=== PATIENT | female | born 1990 | race Caucasian/White ===

== ENCOUNTER → 2017-05-02 07:54 | Outpatient (CLI) | payer MEDICAID, SELFPAY ==
[2017-05-02 09:42] LABS: Glucose 1 Hour 97 mg/dL
== END ==
PROVIDERS: PCP Obstetrics & Gynecology; Visit Provider Obstetrics & Gynecology
DX: Z34.90 Encounter for supervision of normal pregnancy, unspecified, unspecified trimester (principal)
CPT/HCPCS: 36415

== ENCOUNTER → 2017-05-25 10:05 | Outpatient (CLI) | payer MEDICAID, SELFPAY | PROVIDERS: PCP Obstetrics & Gynecology; Visit Provider Obstetrics & Gynecology | DX: Z34.90 Encounter for supervision of normal pregnancy, unspecified, unspecified trimester (principal) | CPT/HCPCS: 36415; J2790 ==

== ENCOUNTER 2017-05-26 08:12 | Outpatient (CLI) | payer MEDICAID, SELFPAY | END 2017-05-26 08:35 | disposition home or self-care (01) | LOC: LAB 08:13 | PROVIDERS: Visit Provider Obstetrics & Gynecology | DX: Z34.90 Encounter for supervision of normal pregnancy, unspecified, unspecified trimester (principal) | CPT/HCPCS: 96372; J2790 ==

== ENCOUNTER → 2017-06-29 15:19 | Outpatient (REF) | payer MEDICAID, SELFPAY | LOC: LAB 15:19 | PROVIDERS: Visit Provider Obstetrics & Gynecology | DX: Z34.90 Encounter for supervision of normal pregnancy, unspecified, unspecified trimester (principal) | CPT/HCPCS: 86403 ==

== ENCOUNTER → 2017-08-04 11:21 | Outpatient (CLI) | payer MEDICAID, SELFPAY ==
[2017-08-04 11:24] LABS: Microscopic, Urine URINE MICROSCOPIC (MICROSCOPIC)
[2017-08-04 11:45] LABS: Basophils % 0.2 % (0.1-2.0); Eosinophils # 0.1 K/mm3 (0.0-0.4); Eosinophils % 0.6 % (0.1-12.0); Hematocrit 34.7 % (37.0-47.0); Hemoglobin 11.5 g/dL (12.2-16.2); Lymphocytes # 1.6 K/mm3 (0.7-4.5); Lymphocytes % 19.5 K/mm3 (10-50); Mean Corpuscular HGB Conc 33.2 g/dL (31.8-35.4); Mean Corpuscular Hemoglobin 27.8 pg (27.0-31.2); Mean Corpuscular Volume 83.7 fl (81-99); Mean Platelet Volume 7.7 fl (7.4-10.4); Monocytes # 0.4 K/mm3 (0.1-1.0); Monocytes % 4.8 % (1.7-9.3); Neutrophils # 6.3 K/mm3 (1.8-7.8); Platelet Count 217 K/mm3 (142-424); Red Blood Count 4.15 M/mm3 (4.20-5.40); Red Cell Distribution Width 13.3 % (11.5-17.5); White Blood Count 8.4 K/mm3 (4.8-10.8)
[2017-08-04 11:54] LABS: Appearance,Urine CLEAR (Clear); Bilirubin,Urine Negative (Negative); Blood, Urine Negative (Negative); Color,Urine YELLOW (Yellow); Glucose,Urine (UA) Negative (Negative); Ketones,Urine Negative (Negative); Leukocyte Esterase,Urine Negative (Negative); Nitrate,Urine Negative (Negative); Protein,Urine Negative (Negative); Specific Gravity, Urine 1.015 (1.005-1.030); Urobilinogen,Urine 0.2 EU/dl (0.2)
[2017-08-04 12:12] LABS: Bacteria,Urine Trace /lpf; Squamous Epithelial Cell,Urine Occasional #/hpf (0-5)
[2017-08-04 13:27] LABS: Alanine Aminotransferase 22 U/L (12-78); Albumin Level 2.6 gm/dL (3.4-5.0); Albumin/Globulin Ratio 0.7 (1.1-1.8); Alkaline Phosphatase 203 U/L (46-116); Anion Gap 16.4 mEq/L (5-15); Aspartate Amino Transferase 23 U/L (15-37); Bilirubin,Total 0.2 mg/dL (0.2-1.0); Blood Urea Nitrogen 10 mg/dL (7-18); Calcium 8.8 mg/dL (8.5-10.1); Carbon Dioxide 21 mmol/L (21.0-32.0); Chloride 104 mmol/L (98-107); Creatinine,Serum 0.58 mg/dL (0.55-1.02); Estimated Glomerular Filt Rate 127 ml/min (>60); GFR (African American) 153 ML/MIN (>60); Globulin 3.5 gm/dl (1.3-3.2); Glucose 80 mg/dL (74-106); Potassium 4.4 mmoL/L (3.5-5.1); Sodium 137 mmol/L (136-145); Total Protein,Serum 6.1 gm/dL (6.4-8.2)
== END ==
PROVIDERS: Visit Provider Obstetrics & Gynecology
DX: Z01.812 Encounter for preprocedural laboratory examination (principal); P08.0 Exceptionally large newborn baby
CPT/HCPCS: 36415; 80053; 81001; 85025

== ENCOUNTER 2017-08-07 05:56 | Inpatient (IN) ==
[2017-08-07 06:32] LABS: Basophils % 0.1 % (0.1-2.0); Eosinophils # 0.1 K/mm3 (0.0-0.4); Eosinophils % 0.7 % (0.1-12.0); Hematocrit 33.2 % (37.0-47.0); Lymphocytes # 1.9 K/mm3 (0.7-4.5); Lymphocytes % 22.5 K/mm3 (10-50); Mean Corpuscular HGB Conc 33.1 g/dL (31.8-35.4); Mean Corpuscular Hemoglobin 27.3 pg (27.0-31.2); Mean Corpuscular Volume 82.6 fl (81-99); Mean Platelet Volume 8.5 fl (7.4-10.4); Monocytes # 0.5 K/mm3 (0.1-1.0); Monocytes % 5.8 % (1.7-9.3); Neutrophils # 5.8 K/mm3 (1.8-7.8); Neutrophils % 70.8 % (37.0-80.0); Platelet Count 192 K/mm3 (142-424); Red Blood Count 4.01 M/mm3 (4.20-5.40); Red Cell Distribution Width 13.3 % (11.5-17.5); White Blood Count 8.2 K/mm3 (4.8-10.8)
[2017-08-07 06:45] LABS: Albumin Level 2.5 gm/dL (3.4-5.0); Albumin/Globulin Ratio 0.7 (1.1-1.8); Anion Gap 12.8 mEq/L (5-15); Bilirubin,Total 0.2 mg/dL (0.2-1.0); Calcium 8.7 mg/dL (8.5-10.1); Globulin 3.7 gm/dl (1.3-3.2); Potassium 3.8 mmoL/L (3.5-5.1); Total Protein,Serum 6.2 gm/dL (6.4-8.2)
--- NOTE | 2017-08-07 07:27 | Progress Note ---
[facility] Anesthesia Checklist - Patient Identification Patient Identification: Arm Band, Verbal (Name & ) - Structural Data Admitted From: Home Consent for Planned Operative Procedure(s) Verified: Yes Verified Documents: Surgical Consent, History and Physical - NPO Status Verified Time NPO: 00:00 - Additional verifications Patient : Yes Anesthesia Reactions: No - Airway Assessment C-Spine Mobility Assessed: Yes TMJ Mobility Assessed: Yes Dentition: Good Dentition - Neurological Assessment Level of Consciousness: Awake Hx Seizures: No Numbness or tingling in extremities: No - Anesthesia Plan Anesthesia Risk discussed: Yes Anesthesia Plan: Verified ASA Class: II Anesthesia Type: Spinal [facility] Anesthesia HX I have reviewed the patient's past medical history: Yes Medical History: Reports:: Gastroesophageal Reflux Disease(GERD) Other Medical History: Reports: Other Other Surgeries: Yes: Other. No: (PRIMARY R/T PREVIOUS CPD) Amputation: No Fractures: Yes *Family Hx:: Cancer, Hypertension, Coronary Artery Disease
--- NOTE | 2017-08-07 08:28 | Operative Note ---
Date of procedure: 08/07/17 Pre-op Diagnosis:: 1. Term intrauterine . 2. Cephalopelvic disproportion. Post-op Diagnosis:: 1. Term intrauterine , delivered. 2. Cephalopelvic disproportion. 3. 9/9, 7 lb. 11 oz., 20.5 inch female infant, born at 0750. Procedure performed:: Primary low transverse cervical section. Surgeon:: Naman Sawant MD Turf Farm Worker(s):: Dr. Joanie Slater STOCK REPLENISHER:: Other (Jan Farmer CRNA) Anesthesia: spinal Estimated blood loss (mL): 400 Operative findings:: Term intrauterine Operative note:: After the patient was prepped and draped in usual fashion and spinal anesthesia was administered, a low Pfannenstiel incision was made across the midline, and the fat and fascia was in usual fashion, bleeders being clamped and coagulated along the way. The peritoneum was entered with Metzenbaum scissors, and extended above and below. The bladder peritoneum was sharply and bluntly dissected free, and the bladder was protected with a bladder blade. The uterus was entered in a low transverse fashion with a knife, and the incision was extended bluntly, bilaterally. The amniotic sac was ruptured for clear fluid. The baby was found to be in the direct occiput posterior position of the vertex and, with appropriate fundal pressure, the head was easily delivered. There was no meconium. The baby's nasal and oropharynx were bulb suctioned, and the baby cried spontaneously on the abdomen, as was delivered. The cord was clamped and cut, 3 vessels were noted to be within the cord, and cord blood was obtained. The cord pH was 7.34. The baby was handed into the arms of the attending dry room attendant, Dr. Hassan, who assigned Apgars of 9 at 1 minute and 9 at 5 minutes to this 7 lbs. 11 oz., 20.5 inch female infant, born at 0750. The baby was then taken to the nursery in excellent condition, along with the father , who has been present in the operating room. A ring forceps was used to assure adequate change to the cervix; this was then passed off the field, as a nonsterile instrument. The uterus was closed in 2 layers, the first a running locked suture of #1 Vicryl as an endometrial layer, followed by a running unlocked suture of #1 Vicryl as a myometrial layer, imbricating over the first. The bladder peritoneum was closed with running unlocked suture of 2-0 Vicryl. Blood and clots were then swept from the gutters, and the 2 inspected and found to be normal. The peritoneum was grasped with 3 Lydia clamps, and closed with a running semi-locked suture of 0 Vicryl. The muscle was approximated with a running unlocked suture of 0 Vicryl. The fascia was closed with a running locked suture of #1 Vicryl. The subcutaneous fat and Jesse's fascia were closed with a running unlocked suture of 2-0 Vicryl. The skin was closed with a subcuticular suture of 3-0 Vicryl, and appropriately dressed. The sponge needle counts correct. The estimated blood loss was 400 cc. The urine was clear in the Dacosta catheter. A pelvic examination at the close of the procedure expressed blood and clots from the involuting uterus, with IV Pitocin running. The patient tolerated the procedure well, and was taken to PACU in excellent condition. Her blood type is O Rh-, and she will be worked up for Rh immunoglobulin eligibility. Her rubella titer is immune. She plans to breast- feed. Condition: stable Disposition: PACU Specimens:: None Complications:: None
--- NOTE | 2017-08-07 08:34 | Progress Note ---
[facility] Anesthesia Record Part I Intake, IV Amount: 600 Estimated blood loss (mL): 1,000 Urine output (mL): 500 Blood Products used (#): none Blood Pressure: 115/63 SaO2: 98 Pulse Rate: 74 Respiratory Rate: 20 Temperature: 97.0 F Patient is:: Awake Stable to PACU at:: 08:30
--- NOTE | 2017-08-07 08:34 | Progress Note ---
[facility] Anesthesia Record Part II Discharge Time: 09:00 Destination: OB unit PACU nurse assessment reviewed?: Yes Patient Condition:: Good Anesthesia Complications:: None
--- NOTE | 2017-08-07 11:51 | Pharmacy Consult Notes ---
[facility] Pharmacy VTE Monitoring - Patient Demographics Admission date: 08/07/17 Report Date: 08/07/17 Time: 11:50 Allergies/Adverse Reactions: Patient Allergies No Known Allergies Allergy (Verified 08/04/17 10:34) Height: 1.63 m Weight: 87.22 kg - VTE Risk Labs: VTE Related Lab Results Hgb 11.0 g/dL (12.2-16.2) L 08/07/17 06:21 Hct 33.2 % (37.0-47.0) L 08/07/17 06:21 Plt Count 192 K/mm3 (142-424) 08/07/17 06:21 BUN 11 mg/dL (7-18) 08/07/17 06:21 Creatinine 0.63 mg/dL (0.55-1.02) 08/07/17 06:21 Estimated Creat Clear 188 mL/min (0-300) 08/07/17 06:21 Clinical Trial Participant: No - Prophylaxis VTE Prophylaxis Ordered?: Yes Types of VTE Prophylaxis: IPCS Knee High (post-op)
[2017-08-07 12:25] LABS: Bilirubin,Urine Negative (Negative); Blood, Urine Negative (Negative); Color,Urine YELLOW (Yellow); Glucose,Urine (UA) Negative (Negative); Ketones,Urine Negative (Negative); Leukocyte Esterase,Urine Negative (Negative); Microscopic, Urine URINE MICROSCOPIC (MICROSCOPIC); Protein,Urine Negative (Negative); Specific Gravity, Urine <= 1.005 (1.005-1.030); Urobilinogen,Urine 0.2 EU/dl (0.2)
[2017-08-07 12:41] LABS: Amphetamine/Metha Screen,Urine Negative ng/mL (<1000); Barbiturates Screen,Urine Negative ng/mL (<200); Benzodiazepines Screen,Urine Negative ng/mL (200); Cannabinoid Screen,Urine Negative ng/mL (<50); Cocaine Screen,Urine Negative ng/g (<300); Methadone Screen,Urine Negative ng/mL (<300); Opiate Screen,Urine Negative ng/mL (<300); Phencyclidine Screen,Urine Negative ng/mL (<25)
[2017-08-07 13:33] LABS: Appearance,Urine CLEAR (Clear); PH,Urine 6.5 (5.0-8.5)
[2017-08-07 13:41] LABS: Bacteria,Urine Trace /lpf; Squamous Epithelial Cell,Urine Occasional #/hpf (0-5); WBC,Urine Occasional #/hpf (0-3)
[2017-08-08 06:03] LABS: Hematocrit 26.6 % (37.0-47.0)
[2017-08-08 06:10] LABS: Hemoglobin 8.7 g/dL (12.2-16.2)
--- NOTE | 2017-08-08 06:33 | Progress Note ---
Internal Medicine - PN: Subj *Date: 08/08/17 *Time: 06:32 Interval history: This is /postop day #1. The patient is afebrile. Vital signs stable. Wound clean. Abdomen soft (somewhat distended). Lochia normal. Uterine fundus involuting well. Breast-feeding well. Impression: Stable. Exam Vital signs and Labs for Last 24 Hours: Temp Pulse Resp BP Pulse Ox 97.0 F L 89 17 123/91 97 08/07/17 09:21 08/07/17 09:21 08/07/17 09:21 08/07/17 09:21 08/07/17 09:21 Laboratory Results - last 24 hr 08/07/17 06:21: WBC 8.2, RBC 4.01 L, Hgb 11.0 L, Hct 33.2 L, MCV 82.6, MCH 27.3 , MCHC 33.1, RDW 13.3, Plt Count 192, MPV 8.5, Neut % (Auto) 70.8, Lymph % (Auto ) 22.5, Day % (Auto) 5.8, Eos % (Auto) 0.7, Baso % (Auto) 0.1, Neut # (Auto) 5.8, Lymph # (Auto) 1.9, Day # (Auto) 0.5, Eos # (Auto) 0.1, Baso # (Auto) 0.0 08/07/17 06:21: Sodium 136, Potassium 3.8, Chloride 105, Carbon Dioxide 22, Anion Gap 12.8, BUN 11, Creatinine 0.63, Estimated Creat Clear 188, Estimated GFR 115, Est GFR ( Amer) 139, Glucose 93, Calcium 8.7, Total Bilirubin 0.2, AST 18, ALT 22, Alkaline Phosphatase 200 H, Total Protein 6.2 L, Albumin 2.5 L, Globulin 3.7 H, Albumin/Globulin Ratio 0.7 L 08/07/17 06:21: Blood Type O Negative, Antibody Screen Positive 08/07/17 06:21: Antibody Identification Anti-D 08/07/17 07:40: Urine Color Yellow, Urine Appearance Clear, Urine pH 6.5, Ur Specific Arley <= 1.005, Urine Protein Negative, Urine Glucose (UA) Negative, Urine Ketones Negative, Urine Blood Negative, Urine Nitrate Negative, Urine Bilirubin Negative, Urine Urobilinogen 0.2, Ur Leukocyte Esterase Negative, Urine WBC Occasional, Ur Squamous Epith Cells Occasional, Urine Bacteria Trace 08/07/17 07:40: Urine Opiates Screen Negative, Ur Barbituates Screen Negative, Ur Phencyclidine Scrn Negative, Ur Amphetamines Screen Negative, U Methamphetamines Scrn Negative, U Benzodiazepines Scrn Negative, Urine Cocaine Screen Negative, U Marijuana (THC) Screen Negative 08/07/17 07:59: Cord ABG pH 7.34 L 08/08/17 05:40: Hgb 8.7 L D, Hct 26.6 L I & O for Last 24 hours: Intake & Output 08/05/17 08/06/17 08/07/17 08/08/17 11:59 11:59 11:59 11:59 Intake Total 600 / 600 Output Total 500 / 500 Balance 100 / 100 Weight 192 lb 4.6 oz
--- NOTE | 2017-08-09 09:50 | Progress Note ---
Internal Medicine - PN: Subj *Date: 08/09/17 *Time: 09:49 Interval history: This is /postop day #2. The patient is afebrile. Vital signs stable. Wound clean. Abdomen soft. She is somewhat bloated and is not had a bowel movement. Nursing well. Hemoglobin 8.7 g, but clinically stable. Improving. Exam Vital signs and Labs for Last 24 Hours: Temp Pulse Resp BP Pulse Ox 97.0 F L 89 18 123/91 97 08/07/17 09:21 08/07/17 09:21 08/08/17 08:17 08/07/17 09:21 08/07/17 09:21 I & O for Last 24 hours: Intake & Output 08/06/17 08/07/17 08/08/17 08/09/17 11:59 11:59 11:59 11:59 Intake Total 600 / 600 Output Total 500 / 500 Balance 100 / 100 Weight 192 lb 4.6 oz
[2017-08-10 04:24] VITALS: BP 131/61
--- NOTE | 2017-08-10 06:19 | Progress Note ---
Internal Medicine - PN: Subj *Date: 08/10/17 *Time: 06:18 Interval history: This is /postop day #3. The patient is afebrile. Vital signs stable. Wound clean. Abdomen soft. Lochia normal. Uterine fundus involuting well. She is eating and ambulating and has had a bowel movement. She will be discharged today. Exam Vital signs and Labs for Last 24 Hours: Temp Pulse Resp BP Pulse Ox 98.0 F 77 18 131/61 97 08/10/17 04:00 08/10/17 04:00 08/10/17 04:00 08/10/17 04:00 08/07/17 09:21 I & O for Last 24 hours: Intake & Output 08/07/17 08/08/17 08/09/17 08/10/17 11:59 11:59 11:59 11:59 Intake Total 600 / 600 Output Total 500 / 500 Balance 100 / 100 Weight 192 lb 4.6 oz
--- NOTE | 2017-08-10 06:23 | Discharge Summary ---
General - General Admission date:: 08/07/17 Discharge date: 08/10/17 Hospital Course Hospital Course: This 26-year-old 2, now para 2, Ab0 white female was admitted at 39 weeks of gestation for a primary section because of a history of an almost 10 pound baby delivered vaginally at the end of her previous , which resulted in the baby sustaining a fractured clavicle. This baby was also thought to be large and the decision was made to deliver abdominally. On the date of admission, the patient was taken to the operating room, where she underwent a primary low transverse cervical section without complications. The baby was an 9/9, 7 lbs. 11 oz., 20.5 inch female infant, born at 0750 on 08/07/17. The baby is breast-feeding, and is done well. Post and postoperatively, the patient is done well. She is eating and ambulating, and has had a bowel movement. Her wound is clean. Her abdomen is soft. Her lochia is normal. Her uterine fundus has involuted well. She is discharged home on the third /postoperative day on Percocet 5 /325 cyst #20), 1 p.o. every 6 hours as needed pain; on vitamins once a day; and on iron twice a day (hemoglobin 8.7 g, but clinically stable). Patient is not a smoker. Her blood type is O Rh+, and she has received RhoGam. Her rubella titer is immune. She is given appropriate instructions as to diet , exercise, and wound care, and she is to return the office in 2 weeks for follow-up. Objective Vital signs: Temp Pulse Resp BP Pulse Ox 98.0 F 77 18 131/61 97 08/10/17 04:00 08/10/17 04:00 08/10/17 04:00 08/10/17 04:00 08/07/17 09:21 Discharge Plan - Patient Discharge Instructions - Follow up Plan Home Medications: Home Medications Medication Instructions Recorded Confirmed Type ferrous sulfate 325 mg (65 mg 325 mg PO DAILY tab 03/28/17 08/07/17 History iron) tablet,delayed release 1 tab PO DAILY 03/28/17 08/07/17 History vitamin,calcium,sfaaxidd-phxg-edsts acid tablet Prescriptions/Medication Reconciliation: No Action vitamin,calcium,rikimasd-cusx-ebjtf acid tablet 1 tab PO DAILY ferrous sulfate 325 mg (65 mg iron) tablet,delayed release 325 mg PO DAILY tab
== END 2017-08-10 12:25 | disposition home or self-care (01) ==
LOC: OB 05:56
PROVIDERS: ADMIT Obstetrics & Gynecology; ATTEND Obstetrics & Gynecology

== ENCOUNTER 2024-02-10 11:57 | Emergency (ER) | payer OTHER, SELFPAY ==
[2024-02-10 12:00] VITALS: BP 124/80; PULSE 83; RESP 17; TEMP 36.6; O2SAT 99; BMI 29.2
--- NOTE | 2024-02-10 12:16 | ED_ITS ---
Discharge Plan Disposition Patient Disposition: Home, Self-Care Condition: Good Prescriptions Prescriptions: New erythromycin 5 mg/gram (0.5 %) ointment 0.5 inch ophthalmic (eye) BID 5 Days Qty: 3.5 0RF prednisolone acetate [Pred Forte] 1 % drops,suspension 1 drp ophthalmic (eye) QID 2 Days Qty: 5 0RF No Action etonogestrel [Nexplanon] 68 mg implant 1 implant SUBDERMAL ONCE Referrals Follow up/Referrals: Provider,Referral, MD [Primary Care Provider] - See instructions Activity Restrictions/Add. Instructions Additional Instructions/Restrictions: Call Dr. 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 HPI General Stated complaint: right eye swelling Mode of Arrival: Ambulatory Source of Information: Patient Limitations: No Limitations Time Seen by Provider: 02/10/24 12:15 Description of Symptoms (Recalled from Triage Doc. by RN): PATIENT C/O REDNESS, SWELLING, DRAINAGE, AND IRRITATION TO RIGHT EYE FOR OVER 1 WEEK HEENT Symptoms (Recalled from RN notes): Yes Resp Symptoms (Recalled from RN notes): No Skin Symptoms (Recalled from RN notes): No MS Symptoms (Recalled from RN notes): No Functional Status (Recalled from RN notes): WNL History of Present Illness Provider Complaint: 33-year-old female presents for redness, swelling, drainage, and irritation to the right eye for over 1 week patient says it has been almost 2 weeks now. Patient states in the mornings her eye are crusted over Related Data Home Medications ?Medication ?Instructions ?Recorded ?Confirmed etonogestrel 68 mg subdermal 1 implant subdermal ONCE 09/21/17 02/10/24 implant (Nexplanon) Previous Rx's ?Medication ?Instructions ?Recorded erythromycin 5 mg/gram (0.5 %) eye 0.5 inch ophthalmic (eye) BID 5 02/10/24 ointment days #3.5 grams prednisolone acetate 1 % eye 1 drp ophthalmic (eye) QID 2 days 02/10/24 drops,suspension (Pred Forte) #5 mL Allergies Allergy/AdvReac Type Severity Reaction Status Date / Time No Known Allergies Allergy Verified 09/21/17 09:46 Worker's Comp Is this a Worker's Comp case?: No [facility] Disclaimer: The information contained in this section may have been updated after the patient was seen, as this information can be updated by other users. Medical History , SPA RECEPTIONIST) No significant past medical history Social History , SPA RECEPTIONIST) Smoking Status: Former smoker tobacco type: cigarettes second hand exposure: Yes alcohol intake: never substance use type: denies use current occupational status: unemployed household members: significant other and children current occupational exposures/hazards: No ROS Obtained: Yes Systems reviewed as appropriate & no additional complaints except as documented Eyes Eyes: Reports system reviewed and no additional complaints, except as documented, Reports as per HPI, Denies blind spots, Reports blurry vision, Denies change in vision, Denies decreased night vision, Denies diplopia, Reports eye discharge, Reports irritation and Reports itchy eyes Allergic/Immunologic Allergic/Immunologic: Reports itchy eyes Physical Exam General General appearance: alert and in no apparent distress Eye Eye exam: Present PERRL, EOMI, conjunctival redness, conjunctival injection, discharge and other (chemosis rt eye) Expanded Eye Exam Eyelids: right: swelling eyelids Pupils: Bilateral: regular, round and reactive Sclera/Conjunctival: right: injection and tenderness Both Eyes Image: 2 1. Redness with drainage 2. Redness with drainage Respiratory Respiratory exam: Present normal lung sounds bilaterally Cardiovascular Cardiovascular exam: Present regular rate and normal rhythm Neurological Exam Neurological exam: Present alert and oriented X3 Skin Skin exam: Present warm and intact Medical Decision Making Medical Records Medical records reviewed: Yes I reviewed the patient's medical records. Screening: Per USPSTF and CDC recommendations, given the prevalence of disease in our region, it is our hospital?s policy to screen for HIV and viral Hepatitis for all patients aged 18 and over and those with ongoing risk factors. Hugh Inquiry Pt receiving controlled substance: No Hugh was queried for this patient: No Vital Signs: 02/10/24 12:00 Temperature 97.9 F Temperature Source Oral Pulse Rate [Left Brachial] 83 Respiratory Rate 17 Blood Pressure [Left Arm] 124/80 Blood Pressure Mean [Left Arm] 94 Blood Pressure Source [Left Arm] Automatic Cuff Blood Pressure Position [Left Arm] Sitting 02 Sat by Pulse Oximetry 99 Oxygen Delivery Method Room Air Physician Consults Physician Consulted: Dr. Zepeda Time: 12:53 Reason -: Pt condition Comment/Response: Recommends pred forte1% 4 times daily for 2 days
[2024-02-10 13:02] VITALS: BP 124/80; PULSE 83; RESP 17; TEMP 36.6; O2SAT 99
== END 2024-02-10 13:04 | disposition home or self-care (01) ==
PROVIDERS: Emergency Provider Nurse Practitioner Family
DX: H10.31 Unspecified acute conjunctivitis, right eye (principal)
CPT/HCPCS: 99213; G0381